=== PATIENT | male | born 1950 | race Caucasian/White ===

== ENCOUNTER 2017-07-29 10:16 | Day surgery (SDC) | payer MEDICARE ==
--- NOTE | 2017-07-29 12:05 | Operative Note ---
Surgeon/Diagnoses Surgeon/Geology Faculty Member(s) Date of procedure: 07/29/17 Surgeon: MD Mickie Carlson Diagnoses Pre-op diagnosis: History of colon polyps Diverticulosis Post-op diagnosis Same Procedure Procedure Procedure: Colonoscopy Indications: PRAMOD SMITH is a 67 year-old Male with a history of complex ridge polyp of the proximal transverse colon excised in early 2013. A serrated adenoma was confirmed pathologically and he underwent repeat colonoscopy in July 2014 with no significant findings noted. He does have a documented history of diverticulosis. He returns for repeat colonoscopy. Findings: Bowel preparation fair to moderate Fairly significant spasticity No mucosal lesions seen Unchanged diverticulosis Procedure Description: After informed consent was obtained, the patient was taken to the endoscopy suite. IV sedation ensued after he was transferred to the LEFT lateral decubitus position. Digital rectal exam revealed no significant abnormality. The colonoscope was placed in position. The entire colon was evaluated. Bowel preparation was fair to moderate with irrigation and suctioning used to improve visualization. Unchanged diverticulosis was confirmed. Fairly significant spasticity was encountered and visualization was somewhat difficult. No obvious mucosal abnormalities were seen. The colonoscope was carefully removed and the patient was transferred to recovery. EBL (ml): 0 Anesthesia: IV sedation with 10 mg of Versed and 200 g of fentanyl Complications: No immediate Disposition Disposition: Stable to recovery from where he will be discharged home. Secondary to his history significant polyp and some difficulty in visualization, he will will need a fairly short-term repeat colonoscopy in 2 years. at 1204
[2017-07-29 14:11] VITALS: BP 119/75
== END 2017-07-29 14:17 | disposition home or self-care (01) ==
LOC: SDC 10:16
PROC: 0DJD8ZZ Inspection of Lower Intestinal Tract, Via Natural or Artificial Opening Endoscopic (ICD-10-PCS; principal; 2017-07-29)
DX: Z09 Encounter for follow-up examination after completed treatment for conditions other than malignant neoplasm (principal); Z86.010 Personal history of colon polyps; K57.90 Diverticulosis of intestine, part unspecified, without perforation or abscess without bleeding